=== PATIENT | female | born 1975 | race Two or more races ===

== ENCOUNTER 2020-02-17 13:29 | Emergency (ER) | payer OTHER ==
[~2020-02-17] VITALS: Ht 165.1 cm; Wt 72.7 kg
--- NOTE | 2020-02-17 14:12 | PHYS DOC ---
Past Medical History Past Medical History: Depression, Hypothyroid Past Surgical History: Tonsillectomy Smoking Status: Never Smoker Alcohol Use: Occasionally General Adult EDM: Chief Complaint: ABDOMINAL PAIN HPI: HPI: The history was obtained from the patient. Patient is a 44-year-old female with PMH who presents with a chief complaint of lower abdominal pain patient states she has had the pain for 1 week. States the pain is intermittent in nature. States it seems worse in her suprapubic and left lower quadrants. She states she has had nausea without vomiting. She states every time she tries to eat she loses her appetite. Denies any fevers. Denies any alcohol abuse. Denies tobacco abuse. Denies any history of ovarian cyst. Denies dysuria, hematuria, or polyuria. Denies any painful intercourse. Denies any vaginal bleeding or discharge. Unsure of last menstrual period. Denies cough. Denies syncope. Has not tried medicine at home to help. States the pain is sharp. No other complaints. Review of Systems: Review of Systems: Constitutional: Denies fever or chills. [] Eyes: Denies change in visual acuity. [] HENT: Denies nasal congestion or sore throat. [] Respiratory: Denies cough or shortness of breath. [] Cardiovascular: Denies chest pain or edema. [] GI: positive for abdominal pain and nausea : Denies dysuria. [] Musculoskeletal: Denies back pain or joint pain. [] Integument: Denies rash. [] Neurologic: Denies headache, focal weakness or sensory changes. [] Endocrine: Denies polyuria or polydipsia. [] Lymphatic: Denies swollen glands. [] Psychiatric: Denies depression or anxiety. [] Heart Score: Risk Factors: Risk Factors: DM, Current or recent (<one month) smoker, HTN, HLP, family history of CAD, obesity. Risk Scores: Score 0 - 3: 2.5% MACE over next 6 weeks - Discharge Home Score 4 - 6: 20.3% MACE over next 6 weeks - Admit for Clinical Observation Score 7 - 10: 72.7% MACE over next 6 weeks - Early Invasive Strategies Allergies: Allergies: Allergies Coded Allergies Type Severity Reaction Last Updated Verified No Known Drug Allergies 02/17/20 No Physical Exam: PE: Constitutional: Well developed, well nourished, no acute distress, non-toxic appearance. [] HENT: Normocephalic, atraumatic, bilateral external ears normal, oropharynx moist, no oral exudates, nose normal. [] Eyes: PERRLA, EOMI, conjunctiva normal, no discharge. [] Neck: Normal range of motion, no tenderness, supple, no stridor. [] Cardiovascular:Heart rate regular rhythm, no murmur [] Lungs & Thorax: Bilateral breath sounds clear to auscultation [] Abdomen: Mild diffuse lower abdominal tenderness to palpation. No involuntary guarding or rigidity noted. No acute peritonitis. No rebound tenderness. Skin: Warm, dry, no erythema, no rash. [] Back: No tenderness, no CVA tenderness. [] Extremities: No tenderness, no cyanosis, no clubbing, ROM intact, no edema. [] Neurologic: Alert and oriented X 3, normal motor function, normal sensory function, no focal deficits noted. [] Psychologic: Affect normal, judgement normal, mood normal. [] Current Patient Data: Labs: Laboratory Tests Test 02/17/20 13:43 POC Urine HCG, Qualitative Hcg negative (Negative) Vital Signs: Vital Signs Date Time Temp Pulse Resp B/P (MAP) Pulse Ox O2 Delivery O2 Flow Rate FiO2 02/17/20 13:51 98.6 68 18 147/98 (114) 99 Room Air 98.6 EKG: EKG: [] Radiology/Procedures: Radiology/Procedures: [facility] [address] [place] [address] IMAGING REPORT Signed PATIENT: YESENIA GONZALEZ CACCOUNT: [id number] : 1975 LOCATION: ER AGE: 44 SEX: F EXAM STATUS: REG ER ORD. PHYSICIAN: LAUREN BRADLEY DO REASON: lower abdominal pain. concern for mass PROCEDURE: PELVIS W/TV Transabdominal and transvaginal sonography of the pelvis Clinical indications: Lower abdominal pain. Mass lesion seen on abdomen and pelvis CT today. Transabdominal sonography: Uterus is not well visualized. It was retroflexed on CT study. Transvaginal sonography will be performed. There is anechoic cystic lesion located superior to the urinary bladder which measures 10.2 cm in greatest dimension. The left ovary appears normal. The right ovary is difficult to visualize. Transvaginal sonography: Uterus is retroflexed. The endometrial canal measures 4 mm in thickness which is normal. There is a complex nabothian cyst which measures 11 mm. There is a another complex cyst of the anterior lower body of uterus measuring 12 mm in size which corresponds to the CT finding. There is a small fibroid of the fundus of the uterus anteriorly which measures 14 mm. There a cyst within the right ovary measuring 3.9 cm. There is another smaller cyst within the right ovary measuring 1 cm. Excluding the 3.1 cm cyst, the right ovary measures 2.7 cm x 1.8 cm x 1.5 cm in size. Color Doppler flow is seen within the right ovarian parenchyma. The left ovary is normal and measures 3.1 cm x 1.7 cm x 1.2 cm in size. Color Doppler flow is seen within the left ovary. Again seen is the prominent cystic lesion of the anterior right side of the pelvis which appears mainly anechoic with a thin septation posteriorly. No significant intramural nodularity or abnormal color Doppler flow is seen. It measures 9.1 cm. There is a small amount of free fluid in the cul-de-sac. IMPRESSION: Cystic lesion within the anterior right side of the pelvis is mainly anechoic in appearance with a thin septation but no intramural nodule or abnormal color Doppler flow. This is contiguous with the right ovary which corresponds to the CT finding. Differential diagnosis is the same as the CT study. Color Doppler flow is seen within the right ovary. It measures about 10 cm by transabdominal exam. Complex Miriam's cyst of the anterior lower aspect of the uterus. Small uterine fibroid. Electronically signed by: Nishi Sommers MD (02/17/2020 5:45 PM) [id number] DICTATED and SIGNED BY: NISHI SOMMERS MD DATE: 02/17/20 775 [][facility] [address] [place], [place] [id number] IMAGING REPORT Signed PATIENT: YESENIA GONZALEZ CACCOUNT: [id number] : 1975 LOCATION: ER AGE: 44 SEX: F EXAM STATUS: REG ER ORD. PHYSICIAN: LAUREN BRADLEY DO REASON: lower abdominal pain PROCEDURE: CT ABD PELV W/ IV CONTRST ONLY CT study of the abdomen and pelvis with contrast Clinical indications: Lower abdominal pain. TECHNIQUE: After IV infusion of 75 cc of Omnipaque 300, helical CT scanning of the abdomen and pelvis was performed. GI contrast was not administered. This may decrease the sensitivity to detect GI tract pathology. PQRS COMPLIANCE STATEMENT One or more of the following individualized dose reduction techniques were utilized for this study: 1. Automated exposure control 2. Adjustment of the mA and/or kV according to patient size 3. Use of iterative reconstruction technique COMPARISON: None available. FINDINGS: A tiny indeterminate hypodense nodule is seen within the dome of the right lobe of the liver. The spleen is not enlarged. Pancreas is normal. Gallbladder is normal and no extrahepatic biliary ductal dilatation is seen. No adrenal mass is evident. Both kidneys are normal without hydronephrosis or hydroureter. Urinary bladder wall is smooth. Uterus is retroflexed. There is a small hypodense nodule within the anterior lower body of the uterus which could represent a small uterine fibroid or complex Miriam's cyst. There is a complex anterior right ovarian cystic mass which measures 10.9 cm in greatest dimension. Small calcification is seen within it anteriorly. Thin septations are seen within it. This is contiguous with the right ovary. There is a fat plane between the mass and the left ovary. Therefore, this most likely arises from the right ovary. There is a small amount of free fluid within the cul-de-sac. No focal aneurysmal dilatation of the abdominal aorta is seen. No enlarged abdominal or pelvic lymphadenopathy is evident. The appendix is normal. The terminal ileum is unremarkable. No obstructive bowel pattern is evident. No free air or mesenteric edema is evident. No lung base consolidation is evident. Bibasilar atelectasis is seen. No lytic process is seen. IMPRESSION: Large cystic mass lesion of the anterior pelvis which is contiguous with the anterior surface of the right ovary. Negative urine test. Therefore, this may represent a cystic neoplasm of the right ovary or endometrioma. Tubo-ovarian abscess and ovarian torsion are considered less likely given the fact that this mass appears to come off of the anterior surface of the right ovary. There is another cyst of the right ovary measuring 2.6 cm. Small amount of free fluid is seen within the cul-de-sac. Small anterior uterine fibroid or complex Miriam's cyst. Indeterminate tiny hypodense nodule of the dome of the right lobe of the liver. If there is no history of primary malignancy, then this most likely represents a small cyst. Electronically signed by: Nishi Sommers MD (02/17/2020 3:54 PM) [id number] DICTATED and SIGNED BY: NISHI SOMMERS MD DATE: 02/17/20 1554 Course & Med Decision Making: Course & Med Decision Making Pertinent Labs and Imaging studies reviewed. (See chart for details) [] Patient is a 44-year-old female who presents with chief complaint of lower abdominal pain. Initial vital signs unremarkable. Exam noted above. CT imaging was obtained and does reveal a nondescript mass in the right adnexal reg ion. Measuring approximately 10 to 12 cm in its largest diameter. Ovaries were visualized and showed normal size. Unclear whether this represents malignancy versus cyst. Pelvic ultrasound was also obtained and shows normal Doppler flow to the ovaries bilaterally. This ultrasound and not reveal any further diagnostic clues to the etiology of this mass. Examination patient states her pain is been well controlled. Her abdomen remains benign and non-peritoneal. Labs of been all unremarkable. She has tolerated p.o. I did discuss with the patient in great detail the results of imaging. She does feel comfortable going home with outpatient follow-up. I did discuss the case with [facility] M[facility]ATOR Dr. Bailey who states that the patient can call her clinic tomorrow for further work-up. Patient is agreeable to this plan. She will be discharged home with pain and nausea medications. Strict return precautions were discussed and understood. She is appropriate for discharge home at this time. Dragon Disclaimer: Dragon Disclaimer: This electronic medical record was generated, in whole or in part, using a voice recognition dictation system. Departure Departure Impression: Primary Impression: Adnexal mass Disposition: HOME, SELF-CARE Condition: STABLE Referrals: JAYANT BAILEY MD Patient Instructions: Ovarian Cancer, Ovarian Cyst Additional Instructions: Please follow-up with [facility]INE OPERATOR tomorrow morning for further outpatient evaluation. Please return emergency department immediately if her symptoms do not improve or worsen. Scripts Ondansetron Hcl (ZOFRAN) 4 Mg Tablet 4 MG PO PRN TID PRN for NAUSEA, #15 nausea/vomiting Prov: LAUREN BRADLEY DO 02/17/20 Ibuprofen (IBUPROFEN) 600 Mg Tablet 600 MG PO PRN Q6HRS PRN for PAIN, #20 TAB take with food or milk Prov: LAUREN BRADLEY DO 02/17/20 Justicifation of Admission Dx: Justifications for Admission: Justification of Admission Dx: N/A LAUREN BRADLEY DO Feb 17, 2020 14:12
[2020-02-17] MEDS ORDERED: MORPHINE SULFATE 4 MG/ML VIAL. IV ONE (14:15)
[2020-02-17] MEDS ORDERED: IV NORMAL SALINE 1000ML BAG 1,000 ML IV ONE (14:15)
[2020-02-17] MEDS ORDERED: ONDANSETRON PF 4 MG/2 ML VIAL. IVP ONE (14:15)
[2020-02-17 14:17] LABS: BASO # 0.1 x10^3/uL (0.0-0.2); BASO % 1 % (0-3); EOS # 0.1 x10^3/uL (0.0-0.7); EOS % 2 % (0-3); HEMATOCRIT 39.8 % (36.0-47.0); HEMOGLOBIN 13.5 g/dL (12.0-15.5); LYMPH # 2.1 x10^3/uL (1.0-4.8); LYMPH % 38 % (24-48); MEAN CORPUSCULAR HEMOGLOBIN 30 pg (25-35); MEAN CORPUSCULAR HGB CONC 34 g/dL (31-37); MEAN CORPUSCULAR VOLUME 89 fL (79-100); MONO # 0.3 x10^3/uL (0.0-1.1); MONO % 6 % (0-9); NEUT % 54 % (31-73); PLATELET COUNT 252 x10^3/uL (140-400); RED BLOOD COUNT 4.48 x10^6/uL (3.50-5.40); RED CELL DISTRIBUTION WIDTH 13.9 % (11.5-14.5); WHITE BLOOD COUNT 5.6 x10^3/uL (4.0-11.0)
[2020-02-17 14:17] LABS: BILIRUBIN,URINE NEGATIVE (NEG); CLARITY,URINE CLEAR; NITRITE,URINE NEGATIVE (NEG); PROTEIN,URINE NEGATIVE (NEG-TRACE); UROBILINOGEN,URINE 0.2 mg/dL (0.2 mg/dL)
[2020-02-17 14:20] LABS: COLOR,URINE STRAW
[2020-02-17 14:21] LABS: BACTERIA,URINE MODERATE /HPF (0-FEW); SQUAMOUS EPITHELIAL CELL,UR MANY /LPF
[2020-02-17 14:23] LABS: RBC,URINE 0 /HPF (0-2); WBC,URINE OCC /HPF (0-4)
[2020-02-17 14:25] LABS: CALCIUM 8.6 mg/dL (8.5-10.1); CREATININE 0.8 mg/dL (0.6-1.0); GFR 77.9; POTASSIUM 3.6 mmol/L (3.5-5.1)
[2020-02-17 14:31] LABS: ALBUMIN 4.2 g/dL (3.4-5.0); ALBUMIN/GLOBULIN RATIO 1.2 (1.0-1.7); TOTAL BILIRUBIN 0.2 mg/dL (0.2-1.0); TOTAL PROTEIN 7.7 g/dL (6.4-8.2)
[2020-02-17] MEDS ORDERED: IOHEXOL 300 MG/ML 100ML VIAL. IV ONE (15:15)
--- NOTE | 2020-02-17 15:56 | RAD ---
CT study of the abdomen and pelvis with contrast Clinical indications: Lower abdominal pain. TECHNIQUE: After IV infusion of 75 cc of Omnipaque 300, helical CT scanning of the abdomen and pelvis was performed. GI contrast was not administered. This may decrease the sensitivity to detect GI tract pathology. PQRS COMPLIANCE STATEMENT One or more of the following individualized dose reduction techniques were utilized for this study: 1. Automated exposure control 2. Adjustment of the mA and/or kV according to patient size 3. Use of iterative reconstruction technique COMPARISON: None available. FINDINGS: A tiny indeterminate hypodense nodule is seen within the dome of the right lobe of the liver. The spleen is not enlarged. Pancreas is normal. Gallbladder is normal and no extrahepatic biliary ductal dilatation is seen. No adrenal mass is evident. Both kidneys are normal without hydronephrosis or hydroureter. Urinary bladder wall is smooth. Uterus is retroflexed. There is a small hypodense nodule within the anterior lower body of the uterus which could represent a small uterine fibroid or complex Miriam's cyst. There is a complex anterior right ovarian cystic mass which measures 10.9 cm in greatest dimension. Small calcification is seen within it anteriorly. Thin septations are seen within it. This is contiguous with the right ovary. There is a fat plane between the mass and the left ovary. Therefore, this most likely arises from the right ovary. There is a small amount of free fluid within the cul-de-sac. No focal aneurysmal dilatation of the abdominal aorta is seen. No enlarged abdominal or pelvic lymphadenopathy is evident. The appendix is normal. The terminal ileum is unremarkable. No obstructive bowel pattern is evident. No free air or mesenteric edema is evident. No lung base consolidation is evident. Bibasilar atelectasis is seen. No lytic process is seen. IMPRESSION: Large cystic mass lesion of the anterior pelvis which is contiguous with the anterior surface of the right ovary. Negative urine test. Therefore, this may represent a cystic neoplasm of the right ovary or endometrioma. Tubo-ovarian abscess and ovarian torsion are considered less likely given the fact that this mass appears to come off of the anterior surface of the right ovary. There is another cyst of the right ovary measuring 2.6 cm. Small amount of free fluid is seen within the cul-de-sac. Small anterior uterine fibroid or complex Miriam's cyst. Indeterminate tiny hypodense nodule of the dome of the right lobe of the liver. If there is no history of primary malignancy, then this most likely represents a small cyst. Electronically signed by: Filiberto Sommers MD (02/17/2020 3:54 PM) [id number]
[2020-02-17] MEDS ORDERED: HYDROmorphone 2 MG/ML VIAL IV ONE (17:30)
--- NOTE | 2020-02-17 17:48 | RAD ---
Transabdominal and transvaginal sonography of the pelvis Clinical indications: Lower abdominal pain. Mass lesion seen on abdomen and pelvis CT today. Transabdominal sonography: Uterus is not well visualized. It was retroflexed on CT study. Transvaginal sonography will be performed. There is anechoic cystic lesion located superior to the urinary bladder which measures 10.2 cm in greatest dimension. The left ovary appears normal. The right ovary is difficult to visualize. Transvaginal sonography: Uterus is retroflexed. The endometrial canal measures 4 mm in thickness which is normal. There is a complex nabothian cyst which measures 11 mm. There is a another complex cyst of the anterior lower body of uterus measuring 12 mm in size which corresponds to the CT finding. There is a small fibroid of the fundus of the uterus anteriorly which measures 14 mm. There a cyst within the right ovary measuring 3.9 cm. There is another smaller cyst within the right ovary measuring 1 cm. Excluding the 3.1 cm cyst, the right ovary measures 2.7 cm x 1.8 cm x 1.5 cm in size. Color Doppler flow is seen within the right ovarian parenchyma. The left ovary is normal and measures 3.1 cm x 1.7 cm x 1.2 cm in size. Color Doppler flow is seen within the left ovary. Again seen is the prominent cystic lesion of the anterior right side of the pelvis which appears mainly anechoic with a thin septation posteriorly. No significant intramural nodularity or abnormal color Doppler flow is seen. It measures 9.1 cm. There is a small amount of free fluid in the cul-de-sac. IMPRESSION: Cystic lesion within the anterior right side of the pelvis is mainly anechoic in appearance with a thin septation but no intramural nodule or abnormal color Doppler flow. This is contiguous with the right ovary which corresponds to the CT finding. Differential diagnosis is the same as the CT study. Color Doppler flow is seen within the right ovary. It measures about 10 cm by transabdominal exam. Complex Miriam's cyst of the anterior lower aspect of the uterus. Small uterine fibroid. Electronically signed by: Filiberto Sommers MD (02/17/2020 5:45 PM) [id number]
[2020-02-17] MEDS ORDERED: ONDA4TAB7 PO (18:07)
[2020-02-17] MEDS ORDERED: IBUP-1007 PO (18:07)
[2020-02-17 18:40] VITALS: BP 128/70
[2020-02-21] MEDS ORDERED: LEVO75TA5 PO (11:09)
[2020-02-21] MEDS ORDERED: TRAZ-118 PO (11:09)
[2020-02-21] MEDS ORDERED: ESCITALOPRAM OX20 MG PO (11:09)
== END 2020-02-17 18:40 | disposition home or self-care (01) ==
LOC: ER 13:29
DX: R19.04 Left lower quadrant abdominal swelling, mass and lump (principal); R11.0 Nausea; R60.0 Localized edema; F32.9 Major depressive disorder, single episode, unspecified; E03.9 Hypothyroidism, unspecified; Z90.89 Acquired absence of other organs
CPT/HCPCS: 36415; 74177; 76830; 76856; 80053; 81001; 81025; 83690; 85025; 87086; 96361; 96374; 96375; 99285; J1170; J2270; J2405; J7030; Q9967

== ENCOUNTER → 2020-02-21 | Outpatient (CLI) | payer OTHER ==
[2020-02-17 18:40] VITALS: BP 128/70
[~2020-02-21] MED LIST: ESCITALOPRAM OX20 MG PO; IBUP-1007 PO; LEVO75TA5 PO; ONDA4TAB7 PO; TRAZ-118 PO
--- NOTE | 2020-02-21 11:37 | EKG ---
[facility] [address] [place] [address] Test Date: 2020-02-21 Test Time: 11:32:22 Pat Name: YESENIA GONZALEZ Department: Room: Gender: F Hospital Ward Clerk: LARS : 1975 Requested By: JAYANT COSTA Order Number: [id number] Reading MD: Shorty Hernandez Measurements Intervals [place] Rate: 58 P: 36 MN: 152 QRS: 24 QRSD: 80 T: 21 QT: 406 QTc: 402 Interpretive Statements SINUS RHYTHM NORMAL ECG RI6.02 No previous ECG available for comparison Electronically Signed On 02-25-2020 11:05:17 CDT by Shorty Hernandez
--- NOTE | 2020-02-21 13:57 | RAD ---
CHEST PA LATERAL INDICATION: PRE-OP EVAL COMPARISON STUDY: None. FINDINGS: Lungs: Normal lung volume. No pulmonary mass or consolidation. Calcified pulmonary granuloma. The tracheobronchial tree and hilar structures are normal. Pleura: No pleural effusion or pneumothorax. Heart and Mediastinum: The cardiomediastinal silhouette is normal. The great vessels of the thorax are normal. Bones and Soft Tissues: Degenerative changes spine. IMPRESSION: No acute cardiopulmonary process. Electronically signed by: Praneeth Boyer MD (02/21/2020 1:54 PM) [id number]
== END | disposition home or self-care (01) ==
LOC: SURGPAT 10:43
PROVIDERS: ATTEND Obstetrics & Gynecology
DX: Z01.812 Encounter for preprocedural laboratory examination (principal); R19.00 Intra-abdominal and pelvic swelling, mass and lump, unspecified site; J84.10 Pulmonary fibrosis, unspecified; Z20.828 Contact with and (suspected) exposure to other viral communicable diseases
CPT/HCPCS: 71046; 93005; U0003

== ENCOUNTER 2020-02-27 10:52 | Inpatient (IN) | payer OTHER ==
--- NOTE | 2020-02-26 14:55 | PREOP HP ---
DATE OF SERVICE: 02/27/2020 CHIEF COMPLAINT AND HISTORY OF PRESENT ILLNESS: This patient is a 44-year-old female who is 3, para 3, came into the Emergency Room because of left lower quadrant pain associated with nausea and she was treated in the ER conservatively and was seen subsequently in the office because of this pelvic pain. Her last delivery was about 5 years ago and she has had one section. Her menstrual period has been regular, but heavy bleeding at times with the period. She is on pills for depression. Also, she is on thyroid medications that she takes 1 pill a day. At the present time, she is scheduled for a laparotomy because her sonogram reveals a large cyst in the adnexal area on the right side associated with possibility of fibroids as well. ALLERGIES: None known. PAST MEDICAL HISTORY: Reveals 1 4-1/2 years ago. Also, she has had a tonsillectomy and tubal ligation. FAMILY HISTORY: Reveals she has three brothers and six sisters. No particular illnesses in the family. REVIEW OF SYSTEMS: Essentially negative. PHYSICAL EXAMINATION: VITAL SIGNS: Reveals she weighs about 160 pounds, blood pressure of 110/80. Vital signs being stable. ABDOMEN: Feels soft. She does have tenderness in the lower quadrant left side as well as right side. PELVIC: Shows external genitalia being normal. Cervical os is closed. Uterus feels enlarged and firm in consistency. In right lower quadrant, there is mild tenderness. In the left lower quadrant, there is also tenderness noted with adnexal mass being fullness. Pap smear done in the office has remained normal. DIAGNOSES: Pelvic pain, adnexal mass, possible ovarian cyst, possible fibroid uterus. PLAN: Laparotomy, possible salpingo-oophorectomy, possible hysterectomy. The details of the surgery, the risks and complications including any injury to the bladder or bowel has been explained to the patient. She is willing for the operation at the present time. JAYANT COSTA MD DR: KEY/roxana JOB#: [id number] / [id number]
[2020-02-27] VITALS (12 sets, daily range): BP systolic 97–117; BP diastolic 48–70
[~2020-02-27] VITALS: Ht 165.1 cm; Wt 72.6 kg
[~2020-02-27 10:52] MED LIST changes: +GELATIN SPONGE SIZE 100. ONE; +GELATIN SPONGE SIZE 12-7MM SPONGE. ONE; +HYDROmorphone 2 MG/ML VIAL IV PRN; +IV RINGERS,LACTATED 1000ML 1,000 ML IV SCH; +LIDOCAINE 1% PF 2 ML VIAL. ID PRN; +ONDANSETRON PF 4 MG/2 ML VIAL. IV PRN; +PROCHLORPERAZINE 10 MG/2 ML VIAL. IV PRN; +fentaNYL PF VIAL 100 MCG/2 ML VIAL IV PRN
[2020-02-27] MEDS ORDERED: MIDAZOLAM HCL/PF 2 MG/2 ML VIAL. ONE (11:10)
[2020-02-27] MEDS ORDERED: fentaNYL PF VIAL 250 MCG/5 ML VIAL ONE (11:38)
[2020-02-27] MEDS ORDERED: ROCURONIUM 50 MG/5 ML VIAL. ONE ×2 (11:38→12:26)
[2020-02-27] MEDS ORDERED: DEXAMETHASONE SOD PHOS 4 MG/ML VIAL ONE (12:09)
[2020-02-27] MEDS ORDERED: ONDANSETRON PF 4 MG/2 ML VIAL. ONE (12:09)
[2020-02-27] MEDS ORDERED: ePHEDrine PF IN SALINE 50 MG/10 ML SYRINGE. IV ONE (13:21)
[2020-02-27] MEDS ORDERED: GLYCOPYRROLATE 1 MG/5 ML VIAL. ONE (13:45)
[2020-02-27] MEDS ORDERED: NEOSTIGMINE METHYLSULFATE 5 MG/5 ML SYRINGE. ONE (13:45)
--- NOTE | 2020-02-27 13:59 | PDOC ---
GENERAL General: 44yrs old Lady admitted for Pelvic Pain and Adnexal Mass. Schuled for Surgery today. VITAL SIGNS Vital Signs/I&O: Vital Signs Date Time Temp Pulse Resp B/P (MAP) Pulse Ox O2 Delivery O2 Flow Rate FiO2 02/27/20 11:19 97.4 72 20 140/74 99 Room Air 97.4 ALLERGIES Allergies: Allergies Coded Allergies Type Severity Reaction Last Updated Verified No Known Drug Allergies 02/27/20 No MEDS Medications: Current Medications Medications (Trade) Dose Ordered Sig/Colleen Route PRN Reason Start Time Stop Time Status Last Admin Dose Admin Ringer's Solution 1,000 ml @ 30 mls/hr Q24H IV 02/27/20 07:00 02/27/20 18:59 02/27/20 11:30 Cefazolin Sodium/ Dextrose 50 ml @ 100 mls/hr 1X PREOP PRN IV PRIOR TO PROCEDURE 02/27/20 06:00 02/27/20 18:00 02/27/20 11:35 Gelatin (Gelfoam Size 12-7mm) 1 each STK-MED ONCE .ROUTE 02/27/20 07:23 02/27/20 07:23 DC 02/27/20 12:07 LAB Lab: Laboratory Tests Test 02/27/20 11:15 POC Urine HCG, Qualitative Hcg negative (Negative) ASSESSMENT & PLAN A&P Under GA Laparotomy Excision of Paraovarian Cyst and Hysterectomy and Bilateral SalpingoOphorectomy done, EBL 250cc. Justifications for Admission Other Justification JAYANT COSTA MD Feb 27, 2020 13:59
[2020-02-27] MEDS ORDERED: fentaNYL PF VIAL 100 MCG/2 ML VIAL ONE (14:12)
[2020-02-27] MEDS: fentaNYL PF VIAL 100 MCG/2 ML VIAL IV PRN ×3 (14:16→15:32)
[2020-02-27] MEDS ORDERED: MORPHINE SULFATE 2 MG/ML VIAL. ONE (14:29)
[2020-02-27] MEDS: MORPHINE SULFATE 2 MG/ML VIAL. IV PRN ×2 (14:32→14:37)
[2020-02-27] MEDS ORDERED: IV NORMAL SALINE 1000ML BAG 1,000 ML IV SCH (16:19)
[2020-02-27] MEDS ORDERED: IV DEXTROSE 5 %-0.45 % NACL 1,000 ML IV SCH (16:19)
[2020-02-27] MEDS ORDERED: MAG HYDROX/ALUMINUM HYD/SIMETH 30 ML ORAL.SUSP PO PRN (16:30)
[2020-02-27] MEDS ORDERED: diphenhydrAMINE HCL 25 MG CAPSULE PO PRN (16:30)
[2020-02-27] MEDS ORDERED: NALOXONE 0.4 MG/ML VIAL. IV PRN ×2 (16:30)
[2020-02-27] MEDS ORDERED: DEXTROSE 50% 25 GM / 50ML DISP.SYRIN. IV PRN (16:30)
[2020-02-27] MEDS ORDERED: diphenhydrAMINE 50 MG/ML VIAL IV PRN (16:30)
[2020-02-27] MEDS ORDERED: 0.9 % SODIUM CHLORIDE 10 ML DISP.SYRIN. IV PRN (16:30)
[2020-02-27] MEDS ORDERED: MORPHINE SULFATE 2 MG/ML VIAL. IV PRN (16:30)
[2020-02-27] MEDS ORDERED: CALCIUM CARBONATE 500 MG TAB.CHEW PO PRN (16:30)
[2020-02-27] MEDS ORDERED: ONDANSETRON PF 4 MG/2 ML VIAL. IVP PRN (16:30)
[2020-02-27] MEDS ORDERED: MAGNESIUM HYDROXIDE 2,400 MG/30 ML ORAL.SUSP. PO PRN (16:30)
[2020-02-27] MEDS ORDERED: ZOLPIDEM 5 MG TABLET. PO PRN (16:30)
[2020-02-27] MEDS: oxyCODONE/APAP 5/325 1 TAB TABLET PO PRN (20:00)
[2020-02-27] MEDS: SENNOSIDES/DOCUSATE 8.6/50MG TABLET. PO SCH (21:00)
[2020-02-27] MEDS: IBUPROFEN 200 MG TABLET. PO PRN (22:51)
[2020-02-28] MEDS: oxyCODONE/APAP 5/325 1 TAB TABLET PO PRN ×4 (02:48→21:18)
[2020-02-28 04:27] VITALS: BP 113/65
[2020-02-28] MEDS: SIMETHICONE 80 MG TAB.CHEW PO PRN (08:30)
[2020-02-28 09:00] LABS: BASO % 0 % (0-3); EOS % 0 % (0-3); HEMATOCRIT 35.9 % (36.0-47.0); HEMOGLOBIN 12.2 g/dL (12.0-15.5); LYMPH # 1.6 x10^3/uL (1.0-4.8); LYMPH % 18 % (24-48); MEAN CORPUSCULAR HEMOGLOBIN 30 pg (25-35); MEAN CORPUSCULAR HGB CONC 34 g/dL (31-37); MEAN CORPUSCULAR VOLUME 88 fL (79-100); MONO # 0.8 x10^3/uL (0.0-1.1); MONO % 9 % (0-9); NEUT # 6.6 x10^3/uL (1.8-7.7); NEUT % 73 % (31-73); PLATELET COUNT 248 x10^3/uL (140-400); RED BLOOD COUNT 4.08 x10^6/uL (3.50-5.40); RED CELL DISTRIBUTION WIDTH 13.8 % (11.5-14.5)
[2020-02-28] MEDS ORDERED: FLU VACC QS 2020-21(6MOS+)/PF 0.5 ML SYRINGE. VAX IM ONE (09:00)
--- NOTE | 2020-02-28 09:30 | PDOC ---
GENERAL General: Patient kind of Sleepy today. Explained to Patient about Surgical findings. VITAL SIGNS Vital Signs/I&O: Vital Signs Date Time Temp Pulse Resp B/P (MAP) Pulse Ox O2 Delivery O2 Flow Rate FiO2 02/28/20 05:17 18 97 Room Air 02/28/20 04:27 99.3 73 113/65 (81) 99.3 02/27/20 14:22 8.0 I & O 02/27/20 02/27/20 02/28/20 15:00 23:00 07:00 Intake Total 850 ml 367 ml Output Total 1500 ml 175 ml 700 ml Balance -650 ml 192 ml -700 ml ALLERGIES Allergies: Allergies Coded Allergies Type Severity Reaction Last Updated Verified No Known Drug Allergies 02/27/20 No MEDS Medications: Current Medications Medications (Trade) Dose Ordered Sig/Colleen Route PRN Reason Start Time Stop Time Status Last Admin Dose Admin Simethicone (Gas-X) 80 mg PRN AFTMEALHC PRN PO GAS / BLOATING 02/27/20 16:30 02/28/20 08:30 Diphenhydramine HCl (Benadryl) 25 mg PRN Q6HRS PRN PO ITCHING 02/27/20 16:30 02/28/20 02:48 Dextrose/Sodium Chloride 1,000 ml @ 100 mls/hr Q10H IV 02/27/20 16:19 02/27/20 22:45 Morphine Sulfate (Morphine Sulfate) 1 mg PRN Q1HR PRN IV PAIN 02/27/20 16:30 02/28/20 03:53 Oxycodone/ Acetaminophen (Percocet 5/325) 2 tab PRN Q4HRS PRN PO MODERATE PAIN, SEVERE PAIN 02/27/20 16:30 02/28/20 08:30 Ibuprofen (Motrin) 600 mg PRN Q8HRS PRN PO INFLAMMATION 02/27/20 16:30 02/27/20 22:51 LAB Lab: Laboratory Tests Test 02/27/20 11:15 02/28/20 08:40 POC Urine HCG, Qualitative Hcg negative (Negative) White Blood Count 9.0 x10^3/uL (4.0-11.0) Red Blood Count 4.08 x10^6/uL (3.50-5.40) Hemoglobin 12.2 g/dL (12.0-15.5) Hematocrit 35.9 % (36.0-47.0) L Mean Corpuscular Volume 88 fL (79-100) Mean Corpuscular Hemoglobin 30 pg (25-35) Mean Corpuscular Hemoglobin Concent 34 g/dL (31-37) Red Cell Distribution Width 13.8 % (11.5-14.5) Platelet Count 248 x10^3/uL (140-400) Neutrophils (%) (Auto) 73 % (31-73) Lymphocytes (%) (Auto) 18 % (24-48) L Monocytes (%) (Auto) 9 % (0-9) Eosinophils (%) (Auto) 0 % (0-3) Basophils (%) (Auto) 0 % (0-3) Neutrophils # (Auto) 6.6 x10^3/uL (1.8-7.7) Lymphocytes # (Auto) 1.6 x10^3/uL (1.0-4.8) Monocytes # (Auto) 0.8 x10^3/uL (0.0-1.1) Eosinophils # (Auto) 0.0 x10^3/uL (0.0-0.7) Basophils # (Auto) 0.0 x10^3/uL (0.0-0.2) Laboratory Tests 02/28/20 08:40 ASSESSMENT & PLAN A&P Vital signs stable. Abdomen soft. Incision healing ok. Waiting for Pathology Report. Justifications for Admission Other Justification JAYANT COSTA MD Feb 28, 2020 09:30
[2020-02-28 09:44] VITALS: BP 111/72
--- NOTE | 2020-02-28 10:41 | OP ---
DATE OF SURGERY: PREOPERATIVE DIAGNOSES: Pelvic pain, adnexal mass, possible fibroid uterus, possible ovarian cyst. POSTOPERATIVE DIAGNOSES: Paraovarian cyst, fibroid uterus, and pelvic adhesions, possible endometriosis. DESCRIPTION OF PROCEDURE: The patient was taken to the operating room. Under general anesthesia, she was placed in a dorsal supine position. Blackwood catheter introduced into bladder for continuous bladder drainage. Lower abdomen was prepped and draped in the usual manner. A Pfannenstiel incision was made, abdomen opened in layers and visualization of pelvic structures revealed enlarged cystic structure more than 10 cm occupying the lower portion of the pelvis anterior to the uterus extending from the left side adnexal area and all the way up to the navel and this cyst was also twisted and the cyst was excised first with Jalyn clamps and appears to be a paraovarian cyst and after this, the round ligament on either side was clamped, ligated, cut, and sutured with #1 chromic catgut sutures. The infundibulopelvic ligament on either side was clamped, ligated, cut, and sutured with #1 chromic catgut sutures. There were multiple adhesions of the bladder onto the anterior surface of the uterus because of previous section. All these adhesions were released and also there was adhesion on the posterior surface of the uterus, which was released and the uterine vessels on either side was isolated and clamped and ligated, cut, and sutured with #1 chromic catgut sutures. After the complete reflection of bladder flap peritoneum, a stab wound incision was made posteriorly first below the cervix and it is extended on either side all the way around and uterus with the cervix was removed and subjected for pathological examination. The cut edges of vaginal mucous membrane was brought together midline, sutured together using #1 chromic catgut sutures. The angle of the vagina on either side was anchored to the uterosacral ligaments on either side using [id number] #1 chromic catgut sutures. After the closure of the vaginal cuff, a small piece of Gelfoam sponge was placed below the bladder flap peritoneum. Reperitonealization was done with continuous 0 chromic catgut sutures and after this, there was no active bleeding. Abdomen closed in layers using continuous 0 chromic catgut sutures for the peritoneum, the muscle, the fascia, 3-0 plain continuous sutures applied for subcutaneous tissue and 3-0 Vicryl subcutaneous sutures were placed. Pressure dressing was given. The patient was sent to the recovery room in good condition. No complications encountered at the time of the procedure. The sponge, needle, instrument count were correct at the end of the operation. The patient tolerated the surgery well. No complications at this time. Estimated blood loss about 250 mL. JAYANT COSTA MD DR: KEY/roxana JOB#: [id number] / [id number]
[2020-02-28 15:00] VITALS: BP 114/74
[2020-02-28] MEDS: IBUPROFEN 200 MG TABLET. PO PRN (16:51)
[2020-02-28] MEDS: SENNOSIDES/DOCUSATE 8.6/50MG TABLET. PO SCH ×2 (21:00→21:31)
[2020-02-28 21:13] VITALS: BP 96/58
[2020-02-28] MEDS: NEOMY/BACITR/POLYMYXIN OINT PACKET. TP SCH (21:18)
[2020-02-28] MEDS: DOXYCYCLINE HYCLATE 100 MG TABLET PO SCH (21:18)
[2020-02-29 01:11] VITALS: BP 83/52
[2020-02-29] MEDS: oxyCODONE/APAP 5/325 1 TAB TABLET PO PRN ×4 (01:29→14:13)
[2020-02-29] MEDS: IBUPROFEN 200 MG TABLET. PO PRN ×2 (05:22→14:13)
[2020-02-29 05:29] VITALS: BP 93/55
[2020-02-29 08:00] VITALS: BP 100/66
[2020-02-29] MEDS: DOXYCYCLINE HYCLATE 100 MG TABLET PO SCH (08:13)
[2020-02-29] MEDS: NEOMY/BACITR/POLYMYXIN OINT PACKET. TP SCH (08:13)
[2020-02-29] MEDS: SENNOSIDES/DOCUSATE 8.6/50MG TABLET. PO SCH (08:13)
--- NOTE | 2020-02-29 08:16 | PDOC ---
GENERAL General: Patient doing ok. Has mild Headaches. VITAL SIGNS Vital Signs/I&O: Vital Signs Date Time Temp Pulse Resp B/P (MAP) Pulse Ox O2 Delivery O2 Flow Rate FiO2 02/29/20 05:29 97.6 73 18 93/55 (68) 97 Room Air 97.6 I & O 02/28/20 02/28/20 02/29/20 15:00 23:00 07:00 Intake Total 400 ml Output Total 800 ml Balance -400 ml ALLERGIES Allergies: Allergies Coded Allergies Type Severity Reaction Last Updated Verified No Known Drug Allergies 02/27/20 No MEDS Medications: Current Medications Medications (Trade) Dose Ordered Sig/Colleen Route PRN Reason Start Time Stop Time Status Last Admin Dose Admin Neomycin/ Polymyxin/ Bacitracin (Triple Antibiotic Ointment) 1 pkt BID TP 02/28/20 21:00 02/28/20 21:18 Doxycycline Hyclate (Vibra-Tab) 100 mg BID PO 02/28/20 21:00 02/28/20 21:18 LAB Lab: Laboratory Tests Test 02/28/20 08:40 White Blood Count 9.0 x10^3/uL (4.0-11.0) Red Blood Count 4.08 x10^6/uL (3.50-5.40) Hemoglobin 12.2 g/dL (12.0-15.5) Hematocrit 35.9 % (36.0-47.0) L Mean Corpuscular Volume 88 fL (79-100) Mean Corpuscular Hemoglobin 30 pg (25-35) Mean Corpuscular Hemoglobin Concent 34 g/dL (31-37) Red Cell Distribution Width 13.8 % (11.5-14.5) Platelet Count 248 x10^3/uL (140-400) Neutrophils (%) (Auto) 73 % (31-73) Lymphocytes (%) (Auto) 18 % (24-48) L Monocytes (%) (Auto) 9 % (0-9) Eosinophils (%) (Auto) 0 % (0-3) Basophils (%) (Auto) 0 % (0-3) Neutrophils # (Auto) 6.6 x10^3/uL (1.8-7.7) Lymphocytes # (Auto) 1.6 x10^3/uL (1.0-4.8) Monocytes # (Auto) 0.8 x10^3/uL (0.0-1.1) Eosinophils # (Auto) 0.0 x10^3/uL (0.0-0.7) Basophils # (Auto) 0.0 x10^3/uL (0.0-0.2) Laboratory Tests 02/28/20 08:40 ASSESSMENT & PLAN A&P Vital signs stable. Abdomen soft. Incision healing ok. Will send her Home today PM. Patient to be seen in office in 2 weeks. Justifications for Admission Other Justification JAYANT COSTA MD Feb 29, 2020 08:16
[2020-02-29] MEDS: SIMETHICONE 80 MG TAB.CHEW PO PRN ×2 (08:18→10:13)
[2020-02-29 12:07] VITALS: BP 97/64
--- NOTE | 2020-02-29 16:07 | PATHOLOGY ---
[facility] Accession Number: [id number] . 01 Material submitted: . PART A: fallopian tube - LEFT PARATUBAL CYST. Modifiers: left PART B: ovary - LEFT FALLOPIAN TUBE AND OVARY. Modifiers: left PART C: ovary - RIGHT FALLOPIAN TUBE AND OVARY. Modifiers: right PART D: uterus - UTERUS AND CERVIX . 01 Clinical history: . PELVIC PAIN, POSSIBLE OVARIAN CYST, POSSIBLE FIBROID UTERUS, ADNEXAL MASS . 02 Diagnosis: A. Segment of fallopian tube, paratubal tissue, and portion of ovary, designated "left paratubal mass": - Cystic hydrosalpinx. - Paratubal cyst. - Focal paratubal scarring. . B. Segment of fallopian tube and ovary, left salpingo-oophorectomy: - Hemorrhagic corpus luteum cyst and cystic follicles of ovary. - Short segment of fallopian tube with paratubal hemorrhage. . C. Fallopian tube and ovary, right salpingo-oophorectomy: - Large paratubal cyst, measuring 4.6 cm. - Few small cystic follicles of ovary. . D. Uterus, hysterectomy: - Chronic cervicitis with focal squamous metaplasia. - Late proliferative/early secretory endometrium. - Adenomyosis, uterine corpus, sub-basal, focal, with mild myometrial hypertrophy (uterine weight 113 grams). - Uterine serosal adhesions. LBQ 02/29/2020 1532 Local . 02 Comment: There is no evidence of malignancy. (JPM/db; 02/29/2020) . 02 Electronically signed: . Shahbaz Sloan MD, Pathologist NPI- [id number] . 01 Gross description: . A. The specimen is received in formalin, labeled "Yoselin Lee, left paratubal cyst" and consists of a fluctuant cystic mass measuring 11.1 x 8.5 x 5.8 cm. The serosa is pink-kendall with thin adhesions and inked black. Opening reveals the mass contains 2 cystic structures both containing clear fluid. The cyst lining is pink with scattered streaks but no papillary excrescences. [employer] sections are submitted in A1-A6. . B. The specimen is received in formalin, labeled "Yoselin Lee, left fallopian tube and ovary" and consists of a 15 g nonfimbriated fallopian tube segment (2.0 x 0.7 cm) attached to a hemorrhagic and focally disrupted possible ovary (5.0 x 3.0 cm). Sectioning reveals a 2.3 x 1.7 cm blood clot as well as hemorrhagic lutea. [employer] sections are submitted in B1-B4. . C. The specimen is received in formalin, labeled "Yoselin Lee, right side fallopian tube and ovary" and consists of a 23 g tubo-ovarian complex consisting of a fimbriated fallopian tube measuring 5.5 cm in length and up to 0.8 cm in diameter attached to a 3.1 x 1.5 cm ovary. There is a 4.6 x 2.6 cm cystic paratubal mass containing clear fluid. The cyst lining is pink-kendall and smooth with no papillary excrescences. The fallopian tube reveals a well-defined central lumen. The ovary reveals no gross lesions. [employer] sections are submitted in C1-C5. . D. The specimen is received in formalin, labeled "Yoselin Lee, uterus and cervix" and consists of a 113 g uterus with attached cervix measuring 9.5 x 5.8 x 4.0 cm. The uterine serosa is purple kendall with hemorrhagic adhesions. The cervical mucosa is pink purple, smooth, and glistening. The endocervical canal is corrugated measuring 2.5 cm in length. The endometrial cavity is triangular measuring 5.5 cm in length and 3.5 cm width lined by a pink endometrium measuring 0.1 cm. The myometrium is pink-kendall measuring up to 2.2 cm with no nodules. [employer] sections are submitted as follows: . D1-D2: Opposing cervix D3: Anterior endomyometrium D4: Posterior endomyometrium D5: Serosal adhesions (SDY; 02/28/2020) SYU/SYU 02/28/2020 1444 Local . 02 Pathologist provided ICD-10: N70.11, N83.8, N83.12, N72, N80.0 . 02 CPT . 554436, [id number] Specimen Comment: A courtesy copy of this report has been sent to [phone], [phone] Specimen Comment: [id number] Specimen Comment: Report sent to / DR ACOSTA Performed at: 01 [facility] [address] [facility] [address] [place], [place] [id number] MD Dajuan Kendrick MD Phone: [phone] Performed at: [address] [facility] [address] [place], [place] [id number] MD Shahbaz Sloan MD Phone: [phone]
[2020-02-29 17:20] VITALS: BP 106/70
--- NOTE | 2020-02-29 17:48 | NUR ---
Pt. instructions given per order. Verbalized understanding. Prescriptions given per order. Pt. wheeled down to ED exit with this nurse and S/O.
== END 2020-02-29 17:48 | disposition home or self-care (01) | DRG 743 ==
LOC: SURG 10:52 → 3 NORTH 14:22 → OBSVTOIN 14:22
PROVIDERS: ADMIT Obstetrics & Gynecology; ATTEND Obstetrics & Gynecology
PROC: 0UT70ZZ Resection of Bilateral Fallopian Tubes, Open Approach (ICD-10-PCS; principal; 2020-02-28)
PROC: 0UT20ZZ Resection of Bilateral Ovaries, Open Approach (ICD-10-PCS; 2020-02-28)
PROC: 0UT90ZZ Resection of Uterus, Open Approach (ICD-10-PCS; 2020-02-28)
PROC: 0UBC0ZZ Excision of Cervix, Open Approach (ICD-10-PCS; 2020-02-28)
DX: D25.9 Leiomyoma of uterus, unspecified (principal); N83.201 Unspecified ovarian cyst, right side; N73.6 Female pelvic peritoneal adhesions (postinfective); Z79.899 Other long term (current) drug therapy
CPT/HCPCS: 36415; 81025; 85025; 86850; 86900; 86901; 88304; 88307; 90471; 90686; A7015; J0690; J0780; J1100; J2250; J2270; J2405; J2710; J3010; J3490; J7042; J7120; A4461; G0378; Q0163